=== PATIENT | male | born 2000 | race African-American/Black ===

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

== ENCOUNTER 2022-12-18 10:20 | Emergency (ER) | payer OTHER ==
[~2022-12-18] VITALS: Ht 165.1 cm; Wt 90.7 kg
[2022-12-18 10:25] VITALS: BP 116/70; TEMP 98.1
== END 2022-12-18 11:37 | disposition home or self-care (01) ==
LOC: ED 10:20
DX: S97.82XA Crushing injury of left foot, initial encounter (principal); W22.8XXA Striking against or struck by other objects, initial encounter; Y93.89 Activity, other specified; Y92.9 Unspecified place or not applicable; Y99.9 Unspecified external cause status
CPT/HCPCS: 90471; 90715; 99283